=== PATIENT | female | born 1950 ===

== ENCOUNTER 2021-09-22 15:02 | Outpatient (CLI) | payer OTHER, SELFPAY ==
[2021-09-22 21:58] LABS: Albumin* 4.1 g/dL (3.3-5.0); Chloride* 104 mmol/L (96-114); Sodium* 137 mmol/L (135-149)
[2021-09-22 21:59] LABS: Potassium* 4.3 mmol/L (3.6-5.1)
[2021-09-22 22:01] LABS: Alkaline Phosphatase* 87 U/L (40-150); Aspartate Amino Transferase* 25 U/L (12-35); Bilirubin Total* 0.6 mg/dL (0.1-1.5); Blood Urea Nitrogen* 21 mg/dL (7-30); Carbon Dioxide* 25 mmol/L (20-32); Creatinine* 1.2 mg/dL (0.5-1.5); Estimated Glomerular Filt Rate 48 ml/min; Total Protein* 7.6 g/dL (6.0-8.3)
[2021-09-22 22:02] LABS: Alanine Aminotransferase* 13 U/L (4-35); Glucose* 240 mg/dL (60-115)
== END 2021-09-22 15:03 | disposition home or self-care (01) ==
PROVIDERS: PCP Emergency Medicine; Visit Provider Emergency Medicine
DX: Z00.00 Encounter for general adult medical examination without abnormal findings (principal); I10 Essential (primary) hypertension; E11.9 Type 2 diabetes mellitus without complications; Z79.01 Long term (current) use of anticoagulants; Z79.4 Long term (current) use of insulin
CPT/HCPCS: 80053; 82043; 82570

== ENCOUNTER 2021-11-01 18:37 | Outpatient (CLI) | payer OTHER, SELFPAY ==
[2021-11-01 22:09] LABS: Albumin* 4.2 g/dL (3.3-5.0); Chloride* 103 mmol/L (96-114)
[2021-11-01 22:10] LABS: Potassium* 3.9 mmol/L (3.6-5.1); Sodium* 137 mmol/L (135-149)
[2021-11-01 22:12] LABS: Cholesterol* 159 mg/dL (90-199)
[2021-11-01 22:13] LABS: Alanine Aminotransferase* 14 U/L (4-35); Alkaline Phosphatase* 89 U/L (40-150); Aspartate Amino Transferase* 24 U/L (12-35); Bilirubin Total* 0.5 mg/dL (0.1-1.5); Blood Urea Nitrogen* 28 mg/dL (7-30); Carbon Dioxide* 23 mmol/L (20-32); Creatinine* 1.8 mg/dL (0.5-1.5); Estimated Glomerular Filt Rate 30 ml/min; Glucose* 311 mg/dL (60-115); Total Protein* 7.3 g/dL (6.0-8.3); Triglycerides* 133 mg/dL (40-149)
[2021-11-01 22:14] LABS: HDL Cholesterol* 58 mg/dL (>=50); LDL Cholesterol Calculated 74 mg/dL (<100)
== END 2021-11-01 18:38 | disposition home or self-care (01) ==
PROVIDERS: PCP Emergency Medicine; Visit Provider Emergency Medicine
DX: E11.9 Type 2 diabetes mellitus without complications (principal); I10 Essential (primary) hypertension
CPT/HCPCS: 80053; 80061